=== PATIENT | male | born 1970 | race Caucasian/White ===

== ENCOUNTER 2016-09-01 22:10 | Inpatient (IN) | payer BC, OTHER ==
[~2016-09-01 22:10] MED LIST: ATOR40TA49 PO; CARV3.125 PO; ISOS30 PO; PLAV75TA PO; ST J81CH PO
[2016-09-01] MEDS ORDERED: DIPHTH/TETANUS/ACEL PERTUSSIS (BOOSTER) 0.5 ML VIAL/PFS IM ONE ×2 (22:19→23:19)
[2016-09-01] MEDS ORDERED: ceFAZolin 2 GM PREMIX 50 ML ONE (22:19)
[2016-09-01] MEDS ORDERED: ceFAZolin 2 GM PREMIX 50 ML IV STA (22:20)
[2016-09-01] MEDS ORDERED: LIDOCAINE 1%/EPINEPHrine 1:100,000 SOLN 20 ML VIAL ONE (22:20)
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
[2016-09-01 23:00] VITALS: O2SAT 95
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
[2016-09-01 23:10] LABS: AUTOMATED NEUTROPHIL # 4.5 TH/MM3 (1.8-7.7); BASOPHIL # 0.1 TH/MM3 (0-0.2); BASOPHIL % 0.7 % (0.0-2.0); EOSINOPHIL # 0.3 TH/MM3 (0-0.4); EOSINOPHIL % 3.6 % (0.0-4.0); HEMATOCRIT 42.8 % (39.0-51.0); HEMO FLAGS DIFF FINAL; I-STAT POTASSIUM 3.7 MMOL/L (3.5-4.9); LYMPH % 39.6 % (9.0-44.0); LYMPHOCYTE # 3.7 TH/MM3 (1.0-4.8); MEAN CELL VOLUME 88.8 FL (80.0-100.0); MEAN CORPUSCULAR HEMOGLOBIN 30.6 PG (27.0-34.0); MEAN CORPUSCULAR HGB CONC 34.5 % (32.0-36.0); MONO % 8.4 % (0.0-8.0); NEUT % 47.7 % (16.0-70.0); PLATELET COUNT 222 TH/MM3 (150-450); RED BLOOD COUNT 4.82 MIL/MM3 (4.50-5.90); RED CELL DISTRIBUTION WIDTH 14.7 % (11.6-17.2); WHITE BLOOD COUNT 9.3 TH/MM3 (4.0-11.0)
[2016-09-01 23:14] LABS: APTT (PATIENT) 21.5 SEC (24.3-30.1); PROTHROMBIN TIME - PATIENT 10.5 SEC (9.8-11.6)
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
[2016-09-01] MEDS ORDERED: IOHEXOL 350 MG/ML 10 ML VIAL (for RAD DIAG) IV ONE (23:29)
[2016-09-01 23:30] VITALS: BP 168/107; PULSE 72; RESP 20; TEMP 98.2; O2SAT 92
[2016-09-01] MEDS ORDERED: MAGNESIUM HYDROXIDE SUSP 30 ML CUP PO PRN (23:30)
[2016-09-01] MEDS ORDERED: CHLORHEXIDINE GLUCONATE 2 % 1 PACK (2 CLOTHS) TOP PRN (23:30)
[2016-09-01] MEDS ORDERED: MISCELLANEOUS NURSING INFORMATION XX SCH (23:30)
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
[2016-09-02] VITALS (12 sets, daily range): BP systolic 131–161; BP diastolic 74–101; PULSE 52–97; RESP 16–20; TEMP 97.7–98.7; O2SAT 93–100
[2016-09-02] MEDS ORDERED: ASPI81CH CHEW (00:02)
[2016-09-02] MEDS ORDERED: SERT-132 PO (00:02)
[2016-09-02] MEDS ORDERED: ISOS30TA3 PO (00:02)
[2016-09-02] MEDS ORDERED: ATOR40TA16 PO (00:03)
[2016-09-02] MEDS ORDERED: CLOP75TA PO (00:03)
[2016-09-02] MEDS ORDERED: CARV6.252 PO (00:04)
[2016-09-02] MEDS: METOPROLOL TARTRATE 5 MG/5 ML VIAL IV PUSH SCH ×3 (00:08→07:58)
[2016-09-02] MEDS: HYDROmorphone HCL PF 1 MG/ML VIAL IVP PRN ×5 (00:09→20:43)
[2016-09-02] MEDS: SODIUM CHLOR 0.9% 1000 ML INJ 1,000 ML IV SCH ×4 (01:48→20:22)
[2016-09-02] MEDS: BACITRACIN TOP OINT 15 GM TUBE TOP SCH ×3 (02:09→20:22)
[2016-09-02] MEDS: ONDANSETRON HCL 4 MG/2 ML VIAL IV PRN ×2 (03:34→10:53)
[2016-09-02] MEDS: CHLORHEXIDINE GLUCONATE 2 % 1 PACK (2 CLOTHS) TOP SCH (03:35)
[2016-09-02 05:04] LABS: AUTOMATED NEUTROPHIL # 11.6 TH/MM3 (1.8-7.7); BASOPHIL % 0.3 % (0.0-2.0); EOSINOPHIL % 0.2 % (0.0-4.0); HEMATOCRIT 37.1 % (39.0-51.0); LYMPH % 9.6 % (9.0-44.0); LYMPHOCYTE # 1.4 TH/MM3 (1.0-4.8); MEAN CELL VOLUME 89.8 FL (80.0-100.0); MEAN CORPUSCULAR HEMOGLOBIN 30.5 PG (27.0-34.0); MONO % 8.4 % (0.0-8.0); NEUT % 81.5 % (16.0-70.0); PLATELET COUNT 241 TH/MM3 (150-450); RED BLOOD COUNT 4.13 MIL/MM3 (4.50-5.90); RED CELL DISTRIBUTION WIDTH 14.9 % (11.6-17.2); WHITE BLOOD COUNT 14.2 TH/MM3 (4.0-11.0)
[2016-09-02 05:08] LABS: HEMO FLAGS AUTO DIFF
[2016-09-02 05:26] LABS: POTASSIUM 4.1 MEQ/L (3.5-5.1)
[2016-09-02 07:31] LABS: BANDS 4 % (0-6); BASOPHILS 1 % (0-2); NEUTROPHIL # MANUAL DIFF 10.8 TH/MM3 (1.8-7.7); POLYS (SEG NEUTROPHILS) 72 % (16-70); WBC DIFF SAMPLE 100
[2016-09-02 07:32] LABS: PLATELET ESTIMATE SMEAR NORMAL (NORMAL); PLATELET MORPHOLOGY NORMAL (NORMAL); SCAN/DIFF FINAL DIFF MANUAL
[2016-09-02] MEDS: DOCUSATE SODIUM 100 MG CAP PO SCH ×2 (07:58→20:21)
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
[2016-09-02] MEDS ORDERED: EPINEPHrine HCL (1:10,000) 1 MG/10 ML SYRINGE ONE (10:57)
[2016-09-02] MEDS ORDERED: ATROPINE SULFATE 1 MG/10 ML SYRINGE ONE (10:57)
--- NOTE | 2016-09-02 11:49 | RADRPT ---
EXAM DATE/TIME: 09/02/2016 11:05 CORRECTION Corrected on: September 09, 2016; Added missing examform information. INDICATIONS : Followup trauma, intracranial bleed. RADIATION DOSE: 56.35 CTDIvol (mGy) MEDICAL HISTORY : Hypertension. Cardiovascular disease. SURGICAL HISTORY : None. ENCOUNTER: Subsequent. ACUITY: 1 day PAIN SCALE: Non-responsive. LOCATION: cranial FINDINGS: The previously noted intracranial hemorrhage in the left frontal lobe has increased in size and now m easures approximately 1.8 x 1.1 cm in diameter compared to 1.1 x 0.7 cm in diameter and has increased in density. There is no surrounding edema or midline shift. There is a second small subtle area of h emorrhage noted in the right lower parietal lobe best seen on image #14.No extra-axial fluid collecti ons are identified. The ventricular system remains within normal limits. The posterior fossa and brai nstem are intact. The scalp hematoma does not appear significant changed over the left frontal and pa rietal bones. There is no evidence of fracture. CONCLUSION: 1. No increase in the size of the intraparenchymal hemorrhage in the left frontal lobe. 2. Small subtle area of hemorrhage noted in the lower right parietal lobe. Darnell Kerr MD on September 02, 2016 at 11:41 Board Certified Radiologist. This report was verified electronically. DR Johnson on September 09, 2016 at 9:42 Board Certified Radiologist. This report was verified electronically.
[2016-09-02] MEDS: hydrALAZINE HCL 20 MG/ML VIAL IV SCH ×3 (13:46→22:33)
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
[2016-09-02] MEDS: FAMOTIDINE 20 MG TAB PO SCH (20:21)
[2016-09-02] MEDS: CARVEDILOL 6.25 MG TAB PO SCH (20:21)
[2016-09-02] MEDS: ATORVASTATIN 40 MG TAB PO SCH (20:21)
[2016-09-02] MEDS: SODIUM CHLORIDE 0.9% FLUSH 5 ML FLUSH IVF PRN (20:22)
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
[2016-09-03] VITALS (11 sets, daily range): BP systolic 126–146; BP diastolic 75–87; PULSE 77–94; RESP 18–24; TEMP 96.4–98.2; O2SAT 94–99
[2016-09-03] MEDS: SODIUM CHLOR 0.9% 1000 ML INJ 1,000 ML IV SCH ×3 (02:04→20:26)
[2016-09-03] MEDS: CHLORHEXIDINE GLUCONATE 2 % 1 PACK (2 CLOTHS) TOP SCH (02:04)
[2016-09-03] MEDS ORDERED: EPINEPHrine HCL (1:10,000) 1 MG/10 ML SYRINGE ONE (03:01)
[2016-09-03] MEDS ORDERED: LIDOCAINE HCL 2% 100 MG/5 ML SYRINGE ONE (03:01)
[2016-09-03] MEDS ORDERED: ATROPINE SULFATE 1 MG/10 ML SYRINGE ONE (03:01)
[2016-09-03] MEDS: HYDROmorphone HCL PF 1 MG/ML VIAL IVP PRN ×5 (03:36→20:37)
[2016-09-03] MEDS: hydrALAZINE HCL 20 MG/ML VIAL IV SCH ×3 (04:41→18:00)
--- NOTE | 2016-09-03 05:31 | RADRPT ---
EXAM DATE/TIME: 09/03/2016 04:19 [place] COMPARISON: CT BRAIN W/O CONTRAST, September 02, 2016, 11:05. INDICATIONS : Evaluate progression of subdural hemorrhage . RADIATION DOSE: 49.21 CTDIvol (mGy) MEDICAL HISTORY : Cardiovascular disease. Hypertension. SURGICAL HISTORY : Stent placement ENCOUNTER: Initial ACUITY: 2 days PAIN SCALE: 3/10 LOCATION: cranial TECHNIQUE: Multiple contiguous axial images were obtained of the head. Using automated exposure control and adj ustment of the mA and/or kV according to patient size, radiation dose was kept as low as reasonably a chievable to obtain optimal diagnostic quality images. FINDINGS: No left frontal proximal hemorrhage is stable. Small amount of subarachnoid hemorrhage posteriorly on the right also stable. Left frontal scalp soft tissue swelling. No fractures. CONCLUSION: No significant change has occurred. Ari Dover MD on September 03, 2016 at 5:28 Board Certified Radiologist. This report was verified electronically.
[2016-09-03 05:56] LABS: AUTOMATED NEUTROPHIL # 6.8 TH/MM3 (1.8-7.7); BASOPHIL # 0.1 TH/MM3 (0-0.2); BASOPHIL % 0.7 % (0.0-2.0); EOSINOPHIL # 0.1 TH/MM3 (0-0.4); EOSINOPHIL % 1.1 % (0.0-4.0); HEMATOCRIT 33.1 % (39.0-51.0); HEMO FLAGS DIFF FINAL; LYMPH % 19.8 % (9.0-44.0); MEAN CELL VOLUME 89.5 FL (80.0-100.0); MEAN CORPUSCULAR HEMOGLOBIN 30.8 PG (27.0-34.0); MEAN CORPUSCULAR HGB CONC 34.5 % (32.0-36.0); MONO % 11.9 % (0.0-8.0); NEUT % 66.5 % (16.0-70.0); PLATELET COUNT 223 TH/MM3 (150-450); RED CELL DISTRIBUTION WIDTH 14.6 % (11.6-17.2); WHITE BLOOD COUNT 10.2 TH/MM3 (4.0-11.0)
[2016-09-03 06:10] LABS: BICARBONATE 27.3 MEQ/L (21.0-32.0); MAGNESIUM 2.1 MG/DL (1.5-2.5); POTASSIUM 3.8 MEQ/L (3.5-5.1)
[2016-09-03] MEDS: SERTRALINE HCL 50 MG TAB PO SCH (08:13)
[2016-09-03] MEDS: BACITRACIN TOP OINT 15 GM TUBE TOP SCH ×2 (08:13→20:27)
[2016-09-03] MEDS: CARVEDILOL 6.25 MG TAB PO SCH ×2 (08:14→20:21)
[2016-09-03] MEDS: ISOSORBIDE MONONITRATE 30 MG TAB PO SCH (08:14)
[2016-09-03] MEDS: DOCUSATE SODIUM 100 MG CAP PO SCH ×2 (08:14→20:21)
[2016-09-03] MEDS: ONDANSETRON HCL 4 MG/2 ML VIAL IV PRN (09:19)
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
[2016-09-03] MEDS: ACETAMINOPHEN/HYDROcodone 325 MG/5 MG TAB PO PRN ×4 (11:17→23:56)
[2016-09-03] MEDS: ATORVASTATIN 40 MG TAB PO SCH (20:22)
[2016-09-03] MEDS: FAMOTIDINE 20 MG TAB PO SCH (20:22)
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
--- NOTE | 2016-09-03 22:58 | EKG ---
Date Performed: 09/02/2016 Time Performed: 12:17:45 PTAGE: 46 years EKG: SINUS BRADYCARDIA BORDERLINE ECG INTERPRETATION BASED ON A DEFAULT AGE OF 39 YEARS NO PREVIOUS TRACING DOCTOR: Andrew Ramírez Interpretating Date/Time 09/03/2016 22:57:11
[2016-09-04] VITALS (7 sets, daily range): BP systolic 122–142; BP diastolic 58–88; PULSE 61–81; RESP 17–18; TEMP 95.8–97.8; O2SAT 95–99
[2016-09-04] MEDS: HYDROmorphone HCL PF 1 MG/ML VIAL IVP PRN ×2 (02:12→07:23)
[2016-09-04] MEDS: CHLORHEXIDINE GLUCONATE 2 % 1 PACK (2 CLOTHS) TOP SCH (04:00)
[2016-09-04] MEDS: ACETAMINOPHEN/HYDROcodone 325 MG/5 MG TAB PO PRN ×6 (04:29→23:49)
[2016-09-04] MEDS: hydrALAZINE HCL 20 MG/ML VIAL IV SCH ×4 (06:00→18:00)
[2016-09-04] MEDS: SODIUM CHLORIDE 0.9% FLUSH 5 ML FLUSH IVF PRN (07:24)
[2016-09-04 08:13] LABS: BICARBONATE 26.5 MEQ/L (21.0-32.0); POTASSIUM 3.4 MEQ/L (3.5-5.1)
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
[2016-09-04] MEDS: DOCUSATE SODIUM 100 MG CAP PO SCH (08:23)
[2016-09-04] MEDS: SERTRALINE HCL 50 MG TAB PO SCH (08:23)
[2016-09-04] MEDS: CARVEDILOL 6.25 MG TAB PO SCH ×2 (08:23→20:50)
[2016-09-04] MEDS: ISOSORBIDE MONONITRATE 30 MG TAB PO SCH (08:23)
[2016-09-04] MEDS: BACITRACIN TOP OINT 15 GM TUBE TOP SCH ×2 (08:24→20:51)
[2016-09-04] MEDS: ASPIRIN EC 81 MG TABEC PO SCH (08:27)
[2016-09-04] MEDS ORDERED: LACTULOSE SYRUP 20 GM/30 ML CUP PO ONE (08:45)
[2016-09-04] MEDS ORDERED: POTASSIUM CHLORIDE 10 MEQ CONTROLLED RELEASE TAB PO ONE (08:45)
[2016-09-04] MEDS: ENOXAPARIN SODIUM 40 MG/0.4 ML SYRINGE SQ SCH (09:00)
[2016-09-04] MEDS ORDERED: MAGNESIUM HYDROXIDE SUSP 30 ML CUP PO SCH (09:00)
[2016-09-04] MEDS: MAGNESIUM HYDROXIDE SUSP 30 ML CUP PO SCH ×2 (09:42→20:50)
[2016-09-04] MEDS: DOCUSATE SODIUM 50 MG/SENNA 8.6 MG TAB PO SCH ×2 (09:43→20:50)
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
--- NOTE | 2016-09-04 17:10 | HHI.PR ---
Subjective Subjective Notes Alert and oriented, ambulating unassisted to the restroom Complaints of occasional dizziness Denies numbness or tingling Objective Vitals/I&O Vital Signs Date Time Temp Pulse Resp B/P Pulse Ox O2 Delivery O2 Flow Rate FiO2 09/04/16 16:00 97.7 81 17 122/58 95 09/03/16 07:00 Room Air 09/02/16 19:00 2.00 09/01/16 23:00 21 Labs Laboratory Tests Test 09/04/16 07:12 Sodium Level 142 Potassium Level 3.4 Chloride Level 107 Carbon Dioxide Level 26.5 Anion Gap 9 Blood Urea Nitrogen 11 Creatinine 0.95 Estimat Glomerular Filtration 85 Rate Random Glucose 97 Calcium Level 8.1 Radiology Last Impressions Head CT 09/03/16 0600 Signed Impressions: Service Date/Time: Saturday, September 03, 2016 04:19 - CONCLUSION: No significant change has occurred. Ari Dover MD Maxillofacial CT 09/01/162212 Signed Impressions: Service Date/Time: Thursday, September 01, 2016 23:13 - CONCLUSION: No acute disease. Ari Dover MD Chest CT 09/01/162212 Signed Impressions: Service Date/Time: Thursday, September 01, 2016 23:21 - CONCLUSION: 1. Aneurysmal dilatation of the ascending aorta. 2. Left lung nodules. [address] chest recommended. Ari Dover MD Cervical Spine CT 09/01/162212 Signed Impressions: Service Date/Time: Thursday, September 01, 2016 23:13 - CONCLUSION: Multilevel degenerative changes are noted without fracture or listhesis. Ari Dover MD Abdomen/Pelvis CT 09/01/162212 Signed Impressions: Service Date/Time: Thursday, September 01, 2016 23:21 - CONCLUSION: No acute disease. Ari Dover MD Pelvis X-Ray 09/01/16 0000 Signed Impressions: Service Date/Time: Thursday, September 01, 2016 22:05 - CONCLUSION: 1. Negative AP portable trauma pelvis radiograph. Tevin Arroyo MD Chest X-Ray 09/01/16 0000 Signed Impressions: Service Date/Time: Thursday, September 01, 2016 22:05 - CONCLUSION: 1. No acute findings identified on the portable trauma chest radiograph. Tevin Arroyo MD Narrative Exam GENERAL: 46 year old well-nourished, well developed male sitting up in bed. SKIN: Warm and dry. Scattered abrasions across face. ENT: No nasal bleeding or discharge. Mucous membranes pink and moist. NECK: Trachea midline. No JVD. CARDIOVASCULAR: Regular rate and rhythm. RESPIRATORY: No accessory muscle use. Lungs clear to auscultation. Breath sounds equal bilaterally. GASTROINTESTINAL: Abdomen soft, non-tender, nondistended. + BS. MUSCULOSKELETAL: Extremities without cyanosis, or edema. No obvious deformities. NEUROLOGICAL: Awake and alert. Normal speech. A/P Assessment and Plan INJURIES: LEFT anglican lac w/ arterial bleeding (sutures) Facial abrasions. SAH LEFT frontal IPH Incidental lung nodules PMHx: [place] w/stents (ON PLAVIX), CAD Diet: Regular and tolerating Pulm: IS encouraged patient use Pain: [place]. Pain controlled. Activity: OOB. PT and OT evaluating. Ambulating unassisted GI: Pepcid HS Bowel: Colace. MOM. Lactulose x1. No BM yet. DVT: SCD's. Started Lovenox 40 daily (okay with neurosurgery) Recheck labs in a.m. potassium replaced today. Cardiology consult appreciated. Case management consulted to assist with discharge planning. Plan of care discussed with patient and at bedside. Plan to discharge home versus home with [facility] when cleared by neurosurgery. Attending Statement Patient seen at bedside cardio recs, nsg recs dc planning Attestation The exam, history, and the medical decision-making described in the above note were completed with the assistance of the mid-level provider. I reviewed and agree with the findings presented. I attest that I had a [id number] encounter with the patient on the same day, and personally performed and documented my assessment and findings in the medical record. Luciano Murray Sep 04, 2016 17:10 Boris Obrien MD Sep 28, 2016 20:46
[2016-09-04] MEDS: ATORVASTATIN 40 MG TAB PO SCH (20:50)
[2016-09-04] MEDS: FAMOTIDINE 20 MG TAB PO SCH (20:50)
[2016-09-05 00:33] VITALS: BP 142/89; PULSE 66; RESP 16; TEMP 96.9; O2SAT 96
[2016-09-05] MEDS ORDERED: HYDROmorphone HCL PF 1 MG/ML VIAL IV PUSH ONE (01:30)
[2016-09-05] MEDS: CHLORHEXIDINE GLUCONATE 2 % 1 PACK (2 CLOTHS) TOP SCH (04:00)
[2016-09-05 05:31] VITALS: BP 136/76; PULSE 72; RESP 18; TEMP 97.4; O2SAT 98
[2016-09-05] MEDS: hydrALAZINE HCL 20 MG/ML VIAL IV SCH ×4 (06:00→17:18)
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
[2016-09-05] MEDS: ISOSORBIDE MONONITRATE 30 MG TAB PO SCH (08:15)
[2016-09-05] MEDS: DOCUSATE SODIUM 50 MG/SENNA 8.6 MG TAB PO SCH (08:16)
[2016-09-05] MEDS: SERTRALINE HCL 50 MG TAB PO SCH (08:16)
[2016-09-05] MEDS: ASPIRIN EC 81 MG TABEC PO SCH (08:16)
[2016-09-05] MEDS: CARVEDILOL 6.25 MG TAB PO SCH (08:16)
[2016-09-05] MEDS: ENOXAPARIN SODIUM 40 MG/0.4 ML SYRINGE SQ SCH (08:17)
[2016-09-05] MEDS: BACITRACIN TOP OINT 15 GM TUBE TOP SCH (08:17)
[2016-09-05 09:00] VITALS: BP 156/92; PULSE 59; RESP 20; TEMP 98.1; O2SAT 92
[2016-09-05 09:42] VITALS: PULSE 65
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
[2016-09-05 12:00] VITALS: BP 143/83; PULSE 82; RESP 20; TEMP 97.6; O2SAT 96
[2016-09-05] MEDS ORDERED: HYDR-3516 PO (12:47)
[2016-09-05 16:00] VITALS: BP 136/82; PULSE 59; RESP 18; TEMP 97.9; O2SAT 97
--- NOTE | 2016-09-05 16:59 | HHI.DS ---
Discharge Summary Admission Date Sep 01, 2016 at 23:34 Discharge Date: Sep 05, 2016 Admitting Diagnosis [facility], L Frontal Cerebral Contusion, Complex lacerations Brief History S/P Trauma: [facility], no helmet. CBC/BMP: 09/03/16 0436 09/04/16 0712 Significant Findings Laboratory Tests Test 09/03/16 09/04/16 04:36 07:12 Red Blood Count 3.70 MIL/MM3 (4.50-5.90) Hemoglobin 11.4 GM/DL (13.0-17.0) Hematocrit 33.1 % (39.0-51.0) Monocytes (%) (Auto) 11.9 % (0.0-8.0) Monocytes # (Auto) 1.2 TH/MM3 (0-0.9) Estimat Glomerular Filtration 86 ML/MIN (>89) 85 ML/MIN (>89) Rate Random Glucose 124 MG/DL (74-106) Calcium Level 8.1 MG/DL 8.1 MG/DL (8.5-10.1) (8.5-10.1) Potassium Level 3.4 MEQ/L (3.5-5.1) Imaging Last Impressions Head CT 09/03/16 0600 Signed Impressions: Service Date/Time: Saturday, September 03, 2016 04:19 - CONCLUSION: No significant change has occurred. Ari Dover MD Maxillofacial CT 09/01/162212 Signed Impressions: Service Date/Time: Thursday, September 01, 2016 23:13 - CONCLUSION: No acute disease. Ari Dover MD Chest CT 09/01/162212 Signed Impressions: Service Date/Time: Thursday, September 01, 2016 23:21 - CONCLUSION: 1. Aneurysmal dilatation of the ascending aorta. 2. Left lung nodules. [address] chest recommended. Ari Dover MD Cervical Spine CT 09/01/162212 Signed Impressions: Service Date/Time: Thursday, September 01, 2016 23:13 - CONCLUSION: Multilevel degenerative changes are noted without fracture or listhesis. Ari Dover MD Abdomen/Pelvis CT 09/01/162212 Signed Impressions: Service Date/Time: Thursday, September 01, 2016 23:21 - CONCLUSION: No acute disease. Ari Dover MD Pelvis X-Ray 09/01/16 0000 Signed Impressions: Service Date/Time: Thursday, September 01, 2016 22:05 - CONCLUSION: 1. Negative AP portable trauma pelvis radiograph. Tevin Arroyo MD Chest X-Ray 09/01/16 0000 Signed Impressions: Service Date/Time: Thursday, September 01, 2016 22:05 - CONCLUSION: 1. No acute findings identified on the portable trauma chest radiograph. Tevin Arroyo MD PE at Discharge GENERAL: 46 year old well-nourished, well developed male sitting up in bed. SKIN: Warm and dry. Scattered abrasions across face. ENT: No nasal bleeding or discharge. Mucous membranes pink and moist. NECK: Trachea midline. No JVD. CARDIOVASCULAR: Regular rate and rhythm. RESPIRATORY: No accessory muscle use. Lungs clear to auscultation. Breath sounds equal bilaterally. GASTROINTESTINAL: Abdomen soft, non-tender, nondistended. + BS. MUSCULOSKELETAL: Extremities without cyanosis, or edema. No obvious deformities. NEUROLOGICAL: Awake and alert. Normal speech. Hospital Course [place]: [facility]. No helmet. Unconscious x 5 minutes. Uncontrolled facial hemorrhage ( on Plavix) Arrived with GCS = 15. INJURIES: LEFT mosque lac w/ arterial bleeding (sutures) Multiple facial abrasions SAH LEFT frontal IPH CT - with lung nodules* (F/U outpt) PMHx: DE w/stents, CAD, HTN Diet: Regular and tolerating Pulm: IS, encouraged home use Pain: Glidden. Pain controlled Activity: BR. PT and OT evaluating. Ambulating halls unassisted GI: Pepcid HS Bowel: Colace. MOM. Lactulose x1. + BM. DVT: SCD's. Lovenox Plan of care discussed with patient at bedside. Wound care: Wash wounds with soap and water. May cover with dry dressing if draining, otherwise keep open to air. May apply [id number] antibacterial ointment to abrasions. Neurosurgery cleared patient for discharge today. Follow-up as outpatient. Follow-up with PCP as outpatient. Patient aware of incidental left lung nodule and to follow-up as outpatient. Patient is clear from trauma surgery standpoint to safely discharge home. Pt Condition on Discharge: Stable Discharge Disposition: Discharge Home Discharge Instructions DIET: Follow Instructions for: As Tolerated, No Restrictions Activities you can perform: Full Weight Bearing Activities to Avoid: Concussion Sports, Contact Sports, Strenuous Activity Luciano Murray Sep 05, 2016 16:58
== END 2016-09-05 17:27 | disposition home or self-care (01) | DRG 907 ==
LOC: NEPI 22:10 → EDBD 23:34 → MERGE 23:34 → NEDA 23:34 → N03B 23:41 → N05A 09-03 16:06
PROVIDERS: ADMIT Surgery; ATTEND Surgery
PROC: 03Q Upper Arteries, Repair (ICD-10-PCS; principal; 2016-09-01)
PROC: 0JQ00ZZ Repair Scalp Subcutaneous Tissue and Fascia, Open Approach (ICD-10-PCS; 2016-09-01)
PROC: 30233R1 Transfusion of Nonautologous Platelets into Peripheral Vein, Percutaneous Approach (ICD-10-PCS; 2016-09-01)
DX: S09.0XXA Injury of blood vessels of head, not elsewhere classified, initial encounter (principal); S06.6X1A Traumatic subarachnoid hemorrhage with loss of consciousness of 30 minutes or less, initial encounter; I71.2 Thoracic aortic aneurysm, without rupture; I10 Essential (primary) hypertension; S01.01XA Laceration without foreign body of scalp, initial encounter; J45.909 Unspecified asthma, uncomplicated; E78.5 Hyperlipidemia, unspecified; I25.2 Old myocardial infarction; I25.10 Atherosclerotic heart disease of native coronary artery without angina pectoris; R40.2410 Glasgow coma scale score 13-15, unspecified time; R41.3 Other amnesia; R91.8 Other nonspecific abnormal finding of lung field; F12.90 Cannabis use, unspecified, uncomplicated; V29.9XXA Motorcycle rider (driver) (passenger) injured in unspecified traffic accident, initial encounter; Z79.02 Long term (current) use of antithrombotics/antiplatelets; Z95.5 Presence of coronary angioplasty implant and graft; Z87.891 Personal history of nicotine dependence
CPT/HCPCS: 12013; 36430; 70450; 70486; 71010; 71260; 72125; 72170; 74177; 80048; 82435; 82565; 82947; 83735; 84132; 84295; 84520; 85007; 85025; 85027; 85576; 85610; 85730; 86850; 86900; 86901; 87641; 90471; 90715; 93005; 94150; 96374; 99291; G0390; J0171; J0360; J0461; J0690; J1170; J2405; J7030; L0150; P9035; Q9967